=== PATIENT | male | born 2000 | race Caucasian/White ===

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

== ENCOUNTER 2020-08-02 14:39 | Emergency (ER) | payer OTHER, BC ==
--- NOTE | 2020-08-02 15:12 | ER Document Report ---
ED GI/ - General Stated Complaint: TESTICULAR PAIN Time Seen by Provider: 08/02/20 14:58 Primary Care Provider: KYUNG COFFMAN MD [NO LOCAL MD] - Follow up as needed Mode of Arrival: Ambulatory Information source: Patient Notes: Patient is a 20-year-old male comes emergency room complaining of left testicular pain. Patient states he was at work yesterday and was lifting boxes waiting approximately 5 to 10 pounds as he was walking he noticed that he started having pain and discomfort in his left testicle. He states the left testicle has been riding higher than his right and hurts to walk. He denies any nausea vomiting. Denies any dysuria. Patient denies any other medical problems. Patient does admit to vaping. TRAVEL OUTSIDE OF THE [place] IN LAST 30 DAYS: No - HPI Patient complains to provider of: Groin pain, Testicular pain. No: Dysuria Onset: Yesterday Timing/Duration: Sudden, Persistent Quality of pain: Sharp Severity at maximum: Moderate Severity in ED: Moderate Pain Level: 3 Context: Lifting. denies: Recent trauma Location: Left testicle Sexual history: Active, Unprotected intercourse Associated symptoms: denies: Dysuria, Erection problem, Painful intercourse, Penile discharge, Urinary hesitancy, Urinary frequency, Urinary retention, Urinary urgency Exacerbated by: Movement, Walking Relieved by: Denies Similar symptoms previously: No Recently seen / treated by doctor: No - Related Data Allergies/Adverse Reactions: No Known Allergies Allergy (Verified 08/02/20 14:54) Past Medical History - General Information source: Patient - Social History Smoking Status: Current Every Day Smoker Cigarette use (# per day): Yes - Vapes Chew tobacco use (# tins/day): Yes Smoking Education Provided: Yes Frequency of alcohol use: None Drug Abuse: None Lives with: Family Family History: Reviewed & Not Pertinent Renal/ Medical History: Denies: Hx Peritoneal Dialysis - Immunizations Immunizations up to date: Yes Hx Diphtheria, Pertussis, Tetanus Vaccination: Yes Review of Systems - Review of Systems Constitutional: No symptoms reported EENT: No symptoms reported Cardiovascular: No symptoms reported Respiratory: No symptoms reported Gastrointestinal: No symptoms reported Genitourinary: See HPI Male Genitourinary: See HPI, Testicular pain Musculoskeletal: No symptoms reported Skin: No symptoms reported Hematologic/Lymphatic: No symptoms reported Neurological/Psychological: No symptoms reported -: Yes All other systems reviewed and negative Physical Exam - Vital signs Vitals: Temp Pulse Resp BP Pulse Ox 98.4 F 69 16 114/71 100 08/02/20 15:09 08/02/20 15:09 08/02/20 15:09 08/02/20 15:09 08/02/20 15:09 Interpretation: Normal - Notes Notes: PHYSICAL EXAMINATION: GENERAL: Well-appearing, well-nourished and in no acute distress. HEAD: Atraumatic, normocephalic. ENT: Nares patent, oropharynx clear without exudates. Moist mucous membranes. NECK: Normal range of motion, supple without lymphadenopathy LUNGS: Breath sounds clear to auscultation bilaterally and equal. No wheezes rales or rhonchi. HEART: Regular rate and rhythm without murmurs ABDOMEN: Soft, nontender, nondistended abdomen. No guarding, no rebound. No masses appreciated. Examination patient's genitalia in the standing position shows that the testicles are hanging slightly different the left is more elevated than the right. Patient does have a bilateral cremaster reflex. There is moderate tenderness to palpate on the left testicle but no edema or swelling is noted. There is no discharge noted from the glans penis. Musculoskeletal: Normal range of motion, no pitting or edema. No cyanosis. NEUROLOGICAL: Normal speech, normal gait. Normal sensory, motor exams PSYCH: Normal mood, normal affect. SKIN: Warm, Dry, normal turgor, no rashes or lesions noted. Course - Re-evaluation Re-evalutation: 08/02/20 18:05 Patient's ultrasound came back negative for any acute findings. There was no sign of torsion or epididymitis. 08/02/20 18:05 - Vital Signs Vital signs: Temp Pulse Resp BP Pulse Ox 98.4 F 69 16 114/71 100 08/02/20 15:09 08/02/20 15:09 08/02/20 15:09 08/02/20 15:09 08/02/20 15:09 - Laboratory Results Laboratory Results Interpreted: 08/02/20 15:16 Urine Blood SMALL H Critical Laboratory Results Reviewed: No Critical Results - Radiology Results Critical Radiology Results Reviewed: No Critical Results Discharge - Discharge Clinical Impression: Testicular pain, left Strain of groin Qualifiers: Encounter type: initial encounter Laterality: left Qualified Code(s): S76.212A - Strain of adductor muscle, fascia and tendon of left thigh, initial encounter Condition: Stable Disposition: HOME, SELF-CARE Instructions: Testicular Pain ([facility]) Additional Instructions: As we discussed your urine and ultrasound were negative for any acute findings. He did have a slight trace of blood in your urine which is nonspecific. At this point that little bump is just just below the large lymph node but its anatomical to normal size you can use some moist warm compresses on the area to see if that helps reduce the size. You could do some light stretching in the left groin but minimally. Ibuprofen or Tylenol for pain. If you continue on with discomfort and pain you can follow-up with your primary care doctor and/or you can contact the urologist. We do not have any urologist on-call here at the hospital see you can look for [facility] urology they have a local office and he might want to try them. Should he have any other concerns or problems return to ER for reevaluation. Forms: Return to Work Referrals: KYUNG COFFMAN MD [NO LOCAL MD] - Follow up as needed
[2020-08-02 15:37] LABS: APPEARANCE,URINE CLEAR; BILIRUBIN,URINE NEGATIVE (NEGATIVE); COLOR,URINE STRAW; GLUCOSE, URINE NEGATIVE (NEGATIVE); KETONES,URINE NEGATIVE (NEGATIVE); LEUKOCYTE ESTERASE,URINE NEGATIVE (NEGATIVE); NITRITE,URINE NEGATIVE (NEGATIVE); PROTEIN,URINE NEGATIVE (NEGATIVE); URINE SPECIFIC GRAVITY 1.012; UROBILINOGEN,URINE NEGATIVE mg/dL (<2.0)
--- NOTE | 2020-08-02 17:53 | RADIOLOGY REPORT (SQ) ---
EXAM DESCRIPTION: U/S SCROTUM W/DOPPLER IMAGES COMPLETED DATE/TIME: 08/02/2020 2:06 pm REASON FOR STUDY: Rule out torsion/epididymitis COMPARISON: 06/21/2016 TECHNIQUE: Static and realtime nogueira scale imaging of the scrotum and testes. Selected color Doppler and spectral images recorded to document blood flow. LIMITATIONS: None. FINDINGS: RIGHT: TESTICLE: Normal size. Normal echotexture. Normal blood flow. No mass. EPIDIDYMIS: Normal. HYDROCELE OR VARICOCELE: No. HERNIA OR EXTRA-TESTICULAR MASS: No. OTHER: Morphologically normal-appearing right inguinal lymph node is incidentally noted. LEFT: TESTICLE: Normal size. Normal echotexture. Normal blood flow. No mass. EPIDIDYMIS: Normal. HYDROCELE OR VARICOCELE: No. HERNIA OR EXTRA-TESTICULAR MASS: No. OTHER: Morphologically normal-appearing left inguinal lymph node is incidentally noted. IMPRESSION: NORMAL SCROTAL ULTRASOUND. NO EVIDENCE OF TESTICULAR MASS OR TORSION. TECHNICAL DOCUMENTATION: JOB ID: [id number] [employer]- All Rights Reserved Reading location - IP/workstation name: [email or web address]
[2020-08-02 18:05] VITALS: BP 112/78
== END 2020-08-02 18:12 | disposition home or self-care (01) ==
LOC: ER 14:39
DX: N50.812 Left testicular pain (principal); S76.212A Strain of adductor muscle, fascia and tendon of left thigh, initial encounter; X50.0XXA Overexertion from strenuous movement or load, initial encounter; Y99.0 Civilian activity done for income or pay; F17.290 Nicotine dependence, other tobacco product, uncomplicated
CPT/HCPCS: 76870; 81001; 87086; 93976; 99284